=== PATIENT | female | born 1940 | race Caucasian/White ===

== ENCOUNTER 2017-12-09 16:48 | Inpatient (IN) | payer MEDICARE, BC ==
[2017-12-09 17:06] VITALS: BMI 23.8
[2017-12-09] MEDS ORDERED: Calcium Carbonate 500 MG ChewTAB PO PRN (18:39)
[2017-12-09] MEDS ORDERED: Bisacodyl 5 MG TAB PO PRN (18:39)
[2017-12-09] MEDS ORDERED: Benzonatate 100 MG CAP PO PRN (18:39)
[2017-12-09] MEDS: Baclofen 10 MG TAB PO SCH (20:13)
[2017-12-09] MEDS: Cefdinir 300 MG CAP PO SCH (20:13)
[2017-12-09] MEDS: Metoprolol Tartrate 25 MG TAB PO SCH (20:13)
[2017-12-09 21:56] LABS: Bilirubin Negative (Negative); Blood, Urine Negative (Negative); Glucose, Urine (Dipstick) Negative (Negative); Leukocyte Negative (Negative); Nitrite Negative (Negative); Protein, Urine (Dipstick) 30 mg/dL (Neg-Trace); Urobilinogen 0.2 mg/dL (0.2-1.0); pH, Urine 8.5 (5.0-9.0)
[2017-12-09 22:14] LABS: Clarity SL HAZY (Clear)
[2017-12-09 22:15] LABS: Bacteria/HPF 1+ HPF (None Seen); RBC/HPF 0-3 HPF (0-3); WBC/HPF 0-3 HPF (0-3)
--- NOTE | 2017-12-09 22:44 | HP ---
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 She normally lives alone, takes care of herself on her medications of baclofen 10 mg 3 times daily, citalopram 20 daily, gabapentin 300 mg nightly, isos orbide 30 mg daily, hydrochlorothiazide 25 daily, metoprolol 12.5 twice daily, pravastatin 20 daily. There at the hospital, she was found to have guaiac-positive stools and to have a CT scan showing di ffuse colitis of the descending colon. She was initially treated with IV fluids and broad spectrum a ntibiotics for diverticulitis with Flagyl and vancomycin. C. diff returned negative. She was also s tarted on Rocephin for possible pneumonia. She improved with the fluid, but continued to have diarrh ea when restarted back on her feeding. Subsequent CT scan still showed no change in the colitis and subsequently she had a non-prepped colonoscopy and biopsy done, which showed only ischemic colitis. A CT angiogram did not show any large vessel disease and it is felt that she should only be treated s ymptomatically for the colitis if she was not a surgical candidate and anticoagulation was contraindi cated due to the bleed. She has improved, is eating better now, but is on a full liquid diet with oc casional mechanical soft food. PAST MEDICAL HISTORY: Remarkable for the above-mentioned CVA several years ago, but she was independ ent, living at home with a caregiver, this was in 2008. She has a history of longstanding hypertensi on, well controlled, and a history of depression and distant colon polyp and a previous history of is chemic colitis in 03/2015. PAST SURGICAL HISTORY: Positive for cholecystectomy, hysterectomy. REVIEW OF SYSTEMS: HEENT: She denies any headaches, dizziness, change in vision or hearing, hoarsen ess or dysphagia. Pulmonary: She denies cough, sputum production. She has had some scarring on her x-ray, but was treated for pneumonia with no real evidence. Gastrointestinal: She has had no nause a or vomiting. Had some abdominal pain, now resolved, but was minimal. Genitourinary: Denies dysur ia, hematuria, nocturia. Musculoskeletal: Has some stiffness in both arms, particularly on the righ t. Neurologic: Complains of expressive aphasia and right-sided weakness. SOCIAL HISTORY: She is a , lives alone. Smoked 35 years until 2004. Nondrinker. FAMILY MEDICAL HISTORY: Positive for cancer in her mother. ALLERGIES: She has no known allergies. PHYSICAL EXAMINATION: GENERAL: The patient is an elderly white female, in no acute distress, lying in bed, oriented x3, an d cooperative. VITAL SIGNS: Temperature 98, pulse 77, respirations 23, O2 sats 96%, blood pressure 136/65. HEENT: Pupils are equal, round, and react to light and accommodation. Sclerae are anicteric. Conju nctivae pale. Oral mucous membranes well hydrated. NECK: Supple. There are no nodes or masses. JVP is not elevated. LUNGS: Clear. CARDIAC: Showed regular rhythm. No gallops or murmurs. ABDOMEN: Soft, nontender with no masses or organomegaly. SKIN AND EXTREMITIES: Display no edema, clubbing, or cyanosis. NEUROLOGIC: Shows right hemiparesis and expressive aphasia, but no receptive aphasia. LABORATORY DATA: Most recent laboratory shows white count still elevated at 13,000, hematocrit 26, h emoglobin 8.6. ASSESSMENT: This is a 77-year-old white female with a history of recurrent ischemic colitis and has had persistent colitis in the last 2 weeks, but now appears to be improving on slow advancement of di et. She has also been treated for possible pneumonia or diverticulitis with cefdinir and is continui ng on this as her white count is still slightly elevated at 13,000. She did have acute renal failure with creatinine of 2.33 on admission, but this has normalized with IV fluids. PLAN: 1. Slowly advance diet with clear liquid and occasional mechanical soft. 2. Continue cefdinir. 3. Continue baclofen. 4. Monitor blood pressures. The patient was on metoprolol and Imdur prior to admission, but now is off both of these medicines. 5. Start PT, OT.
[2017-12-10 05:46] LABS: ALT (SGPT) 9 U/L (8-55); AST (SGOT) 9 U/L (5-34); Albumin 2.4 g/dL (3.4-4.8); Alkaline Phosphatase 43 U/L (40-150); Anion Gap 10 mmol/L (10-20); BUN (Urea Nitrogen) 6 mg/dL (9.8-20.1); Bilirubin, Total 0.4 mg/dL (0.2-1.2); Calc. Creatinine Clearance 81 mL/min (70-130); Carbon Dioxide 23 mmol/L (23-31); Chloride 104 mmol/L (98-107); Estimated GFR-MDRD Greater than 90; Globulin 2.6 g/dL (2.4-3.5); Glucose 91 mg/dL (83-110); Potassium 3.7 mmol/L (3.5-5.1); Sodium 133 mmol/L (136-145)
[2017-12-10] MEDS ORDERED: Prevnar 13-Val Conj/PF 0.5 ML SYRINGE IM ONE (09:00)
[2017-12-10] MEDS ORDERED: Losartan Potassium 50 MG TAB PO SCH (09:00)
--- NOTE | 2017-12-10 09:30 | PRG ---
DATE OF SERVICE: 12/10/2017 SUBJECTIVE: The patient is a 77-year-old white female with a history of distant CVA who was recently admitted to the [facility] for persistent diarrhea, guaiac positive, hypotension, dehydration. She was found to have ischemic colitis and has been treated with IV fluids, antibiotics, and slow pr ogression of her diet with persistent colitis, but appears to be improving. She has become significa ntly weak and therefore admitted to [facility] unit for therapy while monitoring her lilly rrhea and dehydration while she is slowly advanced on her diet. The patient states that she slept we ll through the night, last night. She had only one episode of diarrhea. She has not been eating wel l, however, but denies any abdominal pain. OBJECTIVE: VITAL SIGNS: Temperature last night with T-max of 100, but now 96.6, pulse 70, respirations 20, O2 s ats 95%, blood pressure was increased last night to 242/103, but she had not been restarted back on h er metoprolol and losartan. This was done with resolution of her blood pressure elevation and now it is 132/64. LUNGS: Clear. CARDIAC EXAMINATION: Shows regular rhythm. ABDOMEN: Soft, nontender. NEUROLOGICAL: Shows her to have right hemiparesis, expressive, but not receptive aphasia. LABORATORY DATA: Electrolytes showed sodium 133, potassium 3.7, chloride 104, bicarbonate 23, BUN 6, creatinine 0.59. AST 9, ALT 9. Albumin 2.4, globulin 2.6. ASSESSMENT: 1. Ischemic colitis with acute renal failure, now resolved, but with persistent mild diarrhea slowly advancing with clear liquid and occasional mechanical soft diet. 2. Recurrence of hypertension, controlled on metoprolol, losartan. We will monitor closely. 3. Severe deconditioning. We will start PT and OT on Tuesday.
[2017-12-10] MEDS: Baclofen 10 MG TAB PO SCH ×3 (10:13→20:30)
[2017-12-10] MEDS: Cefdinir 300 MG CAP PO SCH ×2 (10:13→20:29)
[2017-12-10] MEDS: Hydrochlorothiazide 25 MG TAB PO SCH (10:13)
[2017-12-10] MEDS: Citalopram 20 MG TAB PO SCH (10:14)
[2017-12-10] MEDS: Metoprolol Tartrate 25 MG TAB PO SCH ×2 (10:14→20:30)
[2017-12-10] MEDS: Losartan 25 MG TAB PO SCH (10:16)
[2017-12-11] MEDS: Cefdinir 300 MG CAP PO SCH ×2 (09:46→21:07)
[2017-12-11] MEDS: Citalopram 20 MG TAB PO SCH (09:46)
[2017-12-11] MEDS: Baclofen 10 MG TAB PO SCH ×3 (09:46→21:07)
[2017-12-11] MEDS: Metoprolol Tartrate 25 MG TAB PO SCH ×2 (09:47→21:07)
[2017-12-11] MEDS: Hydrochlorothiazide 25 MG TAB PO SCH (09:47)
[2017-12-11] MEDS: Losartan 25 MG TAB PO SCH (09:47)
[2017-12-11] MEDS ORDERED: Nystatin Cream 30 GM TUBE TOP SCH (21:00)
--- NOTE | 2017-12-11 21:37 | PRG ---
DATE OF SERVICE: 12/11/2017 SUBJECTIVE: The patient states that she is still having diarrhea, but is eating well, not feeling we ak or dehydrated. He is having no abdominal pain or fever. Objective shows the patient has had thre e bowel movements and diapers today, but has eaten well with 3400 in and the patient eating 50%-100% of meals. OBJECTIVE: VITAL SIGNS: Have been stable with temperature 99.5, pulse 77, respirations 20, O2 saturations 95% o n room air, blood pressure 143/79. ABDOMEN: Soft and nontender. LUNGS: Clear. ASSESSMENT: 1. Persistent ischemic colitis and diarrhea, but with no significant dehydration and continued oral intake. 2. Resolved acute renal failure, but with persistent diarrhea, we will check again tomorrow. 3. Hypertension, controlled on metoprolol and losartan. 4. Severe deconditioning, to start PT and OT tomorrow.
[2017-12-12] MEDS: Cefdinir 300 MG CAP PO SCH ×2 (09:13→20:34)
[2017-12-12] MEDS: Losartan 25 MG TAB PO SCH (09:14)
[2017-12-12] MEDS: Baclofen 10 MG TAB PO SCH ×3 (09:14→20:34)
[2017-12-12] MEDS: Metoprolol Tartrate 25 MG TAB PO SCH ×2 (09:14→20:35)
[2017-12-12] MEDS: Hydrochlorothiazide 25 MG TAB PO SCH (09:15)
[2017-12-12] MEDS: Citalopram 20 MG TAB PO SCH (09:15)
[2017-12-12 09:22] LABS: Anion Gap 16 mmol/L (10-20); BUN (Urea Nitrogen) 5 mg/dL (9.8-20.1); Calc. Creatinine Clearance 72 mL/min (70-130); Carbon Dioxide 15 mmol/L (23-31); Chloride 108 mmol/L (98-107); Estimated GFR-MDRD 87; Glucose 142 mg/dL (83-110); Potassium 4.8 mmol/L (3.5-5.1); Sodium 134 mmol/L (136-145)
[2017-12-12 11:23] LABS: #Basophils 0.2 thou/uL (0.0-0.2); #Eosinphils 0.1 thou/uL (0.0-0.7); #Lymphocytes 0.7 thou/uL (1.20-3.40); #Monocytes 1.1 thou/uL (0.11-0.59); #Neutrophils 5.5 thou/uL (1.40-6.50); %Basophils 2.2 % (0.0-1.0); %Eosinophils 1.9 % (0.0-10.0); %Lymphocytes 9.4 % (21.0-51.0); %Monocytes 14.2 % (0.0-10.0); %Neutrophils 72.3 % (42.0-75.0); Hemoglobin 8.7 g/dL (12.0-16.0); Mean Corpuscular HGB CONC 31.6 g/dL (32.0-36.0); Mean Corpuscular Hemoglobin 26.7 pg (27.0-31.0); Mean Corpuscular Volume 84.3 fl (81.0-99.0); Mean Platelet Volume 5.5 fL (7.4-10.4); Platelet Count 569 thou/uL (130-400); RBC Distribution Width 16.4 % (11.5-14.5); Red Blood Cell (RBC) Count 3.24 mill/uL (4.20-5.40); White Blood Cell (WBC) Count 7.6 thou/uL (4.8-10.8)
--- NOTE | 2017-12-13 08:02 | PRG ---
DATE OF SERVICE: 12/12/2017 SUBJECTIVE: The patient lying in bed, states she feels weak and is refusing labs, does not want to e at or get up. States she is ready to give up. She is not having any pain. She is having persistent diarrhea. OBJECTIVE: VITAL SIGNS: Temperature is 98.6, pulse 73, respirations 20, O2 sats 94%, blood pressure 157/72. LUNGS: Lungs are clear. CARDIAC: Cardiac examination showed regular rhythm. ABDOMEN: Abdomen is soft and nontender. SKIN AND EXTREMITIES: Show no edema or clubbing. Normal skin turgor. ASSESSMENT: 1. Persistent ischemic colitis, persistent diarrhea. 2. Resolved acute renal failure, but refusal of labs to check and will discuss with family. 3. Stable hypertension on losartan and metoprolol. 4. Severe deconditioning with refusal of therapy at this time. PLAN: Discussed with family. Continue clear liquid diet. Stress need to monitor renal function.
--- NOTE | 2017-12-13 08:05 | PRG ---
DATE OF SERVICE: 12/13/2017 SUBJECTIVE: The patient is lying in the bed resting, much more cheerful today, alert and has allowed lab work and has cooperated with therapy and states she feels that she is getting better. She is still having 1-3 loose stools, but is eating 100% of her clear liquid diet with no abdominal p ain. She has been walking with therapy up to 70 feet with her cindy-walker. Denied any nausea, vomit ing, fever or chills or abdominal pain. OBJECTIVE: VITAL SIGNS: Temperature is 99.8, pulse 73, respirations 20, O2 sats 95% on room air, blood pressure 122/59. LABORATORY: Laboratory did show stable white count 7600, hematocrit 27, hemoglobin 8.7, stable. BUN is stable at 5, creatinine 0.66, GFR 87. Sodium 134, potassium 4.8, chloride 108, bicarb 15. Inta ke and output showed that she did have 2280 in, 1-3 loose stools. ABDOMEN: Abdomen is soft and nontender. LUNGS: Lungs are clear. CARDIAC: Cardiac examination shows regular rhythm. ASSESSMENT: 1. Improving deconditioning and cooperating with therapy. 2. Persistent, but decreased diarrhea with good oral intake. 3. Resolved acute renal failure, but with mild increased metabolic acidosis. 4. Stable cerebrovascular accident with right hemiparesis. PLAN: Advance diet to full liquid. Continue PT, OT. Continue to monitor vital signs closely. Cont inue to monitor for metabolic acidosis and start on sodium bicarbonate 325 mg twice daily.
[2017-12-13] MEDS: Sodium Bicarbonate Tab 325 MG TAB PO SCH ×2 (09:27→20:18)
[2017-12-13] MEDS: Cefdinir 300 MG CAP PO SCH ×2 (09:27→20:17)
[2017-12-13] MEDS: Hydrochlorothiazide 25 MG TAB PO SCH (09:28)
[2017-12-13] MEDS: Metoprolol Tartrate 25 MG TAB PO SCH ×2 (09:29→20:17)
[2017-12-13] MEDS: Losartan 25 MG TAB PO SCH (09:29)
[2017-12-13] MEDS: Baclofen 10 MG TAB PO SCH ×3 (09:29→20:17)
[2017-12-13] MEDS: Citalopram 20 MG TAB PO SCH (09:29)
[2017-12-14] MEDS: Citalopram 20 MG TAB PO SCH (08:04)
[2017-12-14] MEDS: Baclofen 10 MG TAB PO SCH ×3 (08:04→20:52)
[2017-12-14] MEDS: Cefdinir 300 MG CAP PO SCH ×2 (08:04→20:52)
[2017-12-14] MEDS: Hydrochlorothiazide 25 MG TAB PO SCH (08:04)
[2017-12-14] MEDS: Losartan 25 MG TAB PO SCH (08:05)
[2017-12-14] MEDS: Sodium Bicarbonate Tab 325 MG TAB PO SCH ×2 (08:05→20:54)
[2017-12-14] MEDS: Metoprolol Tartrate 25 MG TAB PO SCH ×2 (08:05→20:54)
--- NOTE | 2017-12-14 21:34 | PRG ---
DATE OF SERVICE: 12/14/2017 SUBJECTIVE: Patient feels much better, stronger, more alert and cheerful. States she feels she is g etting better, still having some diarrhea, but feels that she is tolerating a diet full liquid and wi shes to stay on this. OBJECTIVE: Shows blood pressure is 164/70, respirations 21, pulse 73, afebrile, O2 sats 96%. LABORATORY DATA: Laboratories were not done. Patient did work with therapy today. [place] teeth, was h face, sat in the shower bench, required assistance to take a shower, and assistance with changing h er diaper became very fatigued, but did cooperate physical therapy. She has standby assistance to arsen singh, walk 36 and 30 feet, appeared to be improving, but needed assistance, but stated that she did not walk on her own at home. ASSESSMENT: 1. Ischemic colitis with persistent but stabilizing diarrhea. 2. Resolving dehydration with increased oral intake. 3. Improving deconditioning. 4. Stable cerebrovascular accident with right hemiparesis. 5. Resolved acute renal failure. PLAN: 1. Continue PT, OT. 2. Continue full-liquid diet. 3. Continue to monitor vital signs closely. 4. Repeat labs in 2 days.
[2017-12-15] MEDS: Citalopram 20 MG TAB PO SCH (08:28)
[2017-12-15] MEDS: Baclofen 10 MG TAB PO SCH ×3 (08:28→21:06)
[2017-12-15] MEDS: Cefdinir 300 MG CAP PO SCH ×2 (08:28→21:06)
[2017-12-15] MEDS: Metoprolol Tartrate 25 MG TAB PO SCH ×2 (08:29→21:06)
[2017-12-15] MEDS: Losartan 25 MG TAB PO SCH (08:29)
[2017-12-15] MEDS: Sodium Bicarbonate Tab 325 MG TAB PO SCH ×2 (08:29→21:06)
[2017-12-15] MEDS: Hydrochlorothiazide 25 MG TAB PO SCH (08:29)
[2017-12-16 06:05] LABS: Anion Gap 9 mmol/L (10-20); BUN (Urea Nitrogen) 7 mg/dL (9.8-20.1); Calc. Creatinine Clearance 77 mL/min (70-130); Calcium 9.6 mg/dL (7.8-10.44); Carbon Dioxide 27 mmol/L (23-31); Chloride 105 mmol/L (98-107); Estimated GFR-MDRD Greater than 90; Glucose 89 mg/dL (83-110); Potassium 3.8 mmol/L (3.5-5.1); Sodium 137 mmol/L (136-145)
[2017-12-16 06:24] LABS: Anisocytosis SLIGHT = 6-15 cells (100X) (0-5/hpf); Band 20 % (5-11); Hemoglobin 8.3 g/dL (12.0-16.0); Hypochromia MODERATE=16-30 cells (100X) (0-5/hpf); Lymphocytes 25 % (21-51); MDiff Complete? YES; Mean Corpuscular HGB CONC 30.8 g/dL (32.0-36.0); Mean Corpuscular Hemoglobin 26.5 pg (27.0-31.0); Mean Corpuscular Volume 86.1 fl (81.0-99.0); Mean Platelet Volume 5.2 fL (7.4-10.4); Metamyelocyte 2 % (0-0); Monocytes 10 % (0-10); Neutrophil 43 % (42-75); PLT Morphology Comment Appears Increased; Platelet Count 589 thou/uL (130-400); RBC Distribution Width 17.3 % (11.5-14.5); Red Blood Cell (RBC) Count 3.14 mill/uL (4.20-5.40); Target Cells SLIGHT = 2-5 cells (100X) (0-1/hpf); White Blood Cell (WBC) Count 6.8 thou/uL (4.8-10.8)
[2017-12-16] MEDS: Citalopram 20 MG TAB PO SCH (08:53)
[2017-12-16] MEDS: Hydrochlorothiazide 25 MG TAB PO SCH (08:53)
[2017-12-16] MEDS: Losartan 25 MG TAB PO SCH (08:54)
[2017-12-16] MEDS: Baclofen 10 MG TAB PO SCH ×3 (08:54→21:53)
[2017-12-16] MEDS: Metoprolol Tartrate 25 MG TAB PO SCH ×2 (08:54→21:53)
[2017-12-16] MEDS: Sodium Bicarbonate Tab 325 MG TAB PO SCH (08:54)
--- NOTE | 2017-12-16 09:33 | PRG ---
DATE OF SERVICE: 12/15/2017 SUBJECTIVE: The patient is a very pleasant 77-year-old white female with a history of previous CVA, who has developed ischemic colitis and recurrent diarrhea with subsequent acute chronic renal failure . Her renal failure has resolved and she is getting stronger, but she is still very weak, still havi ng diarrhea from her ischemic colitis. She has been advanced to mechanical soft diet and is tolerati ng, but is still having 1-2 soft formed stools daily. She is having no abdominal pain or nausea. OBJECTIVE: ABDOMEN: Abdomen is soft and nontender. LUNGS: Lungs are clear. PT, OT states that she is cooperating well with therapy and in fact was able to dress with only conta ct assistance and was able to walk 92 feet with a cindy-walker with only standby assistance. VITAL SIGNS: Vital signs showed her blood pressure was stable at 191/81 this morning, but O2 sat was 95, respirations 19, pulse 68, temperature 98 and repeat blood pressure is 153/70. LABORATORY: Laboratory showed no recent labs and will repeat again tomorrow. ASSESSMENT: 1. Persistent occult ischemic colitis, tolerating mechanical soft diet with persistent diarrhea, but will check for dehydration and prerenal azotemia tomorrow. 2. Previous cerebrovascular accident with right hemiparesis, stable, but with increasing strength an d conditioning and beginning to be able to maintain her ADLs. PLAN: CBC, base met profile in the a.m. Continue mechanical soft diet. Continue PT, OT.
--- NOTE | 2017-12-16 11:37 | PRG ---
DATE OF SERVICE: 12/16/2017 SUBJECTIVE: The patient feels well with increased strength. No nausea and vomiting, but is having m ore diarrhea since advanced to mechanical soft diet and wished to go back to full liquid. OBJECTIVE: VITAL SIGNS: Shows blood pressure 150/70, temperature 98, pulse 69, respirations 18, O2 sats 96% on room air. LUNGS: Clear. CARDIAC: Examination shows regular rhythm. ABDOMEN: Soft and nontender. NEUROLOGIC: Shows stable right hemiparesis. LABORATORY DATA: Today shows white count of 6,800, hematocrit 27, hemoglobin 8.3. Sodium is 137, po tassium 3.8, chloride 105, bicarbonate 27, BUN 7, creatinine 0.62, glucose 89, and calcium 9.6. Inta ke and output showed that she has had persistent loose stools yesterday with no recent change. ASSESSMENT: 1. Persistent ischemic colitis, possibly slightly worsened with advanced diet. 2. Stable right hemiparesis, old CVA, but improving deconditioning and cooperating with therapy. 3. Acute renal failure, resolved, secondary to dehydration and rhabdomyolysis. PLAN: 1. Discontinue antibiotics. There is no evidence of infection. 2. Obtain stool for Clostridium difficile. 3. Repeat CBC and basic metabolic profile in 2 days. 4. Continue mechanical soft diet, but may decrease to full liquid this week at family's request. 5. Continue PT and OT.
[2017-12-16] MEDS: Cholestyramine/Aspartame 4 gm Packet PO SCH (21:53)
[2017-12-17] MEDS: Hydrochlorothiazide 25 MG TAB PO SCH (08:42)
[2017-12-17] MEDS: Baclofen 10 MG TAB PO SCH ×3 (08:43→21:05)
[2017-12-17] MEDS: Losartan 25 MG TAB PO SCH (08:43)
[2017-12-17] MEDS: Metoprolol Tartrate 25 MG TAB PO SCH ×2 (08:43→21:05)
[2017-12-17] MEDS: Citalopram 20 MG TAB PO SCH (08:43)
[2017-12-17] MEDS: Cholestyramine/Aspartame 4 gm Packet PO SCH ×2 (10:27→21:05)
--- NOTE | 2017-12-17 11:33 | PRG ---
DATE OF SERVICE: 12/17/2017 SUBJECTIVE: Ms. Masterson is doing well. Denies any complaints. She states that she has not had any f urther diarrhea. She is tolerating her p.o. intake. No family at bedside. OBJECTIVE: VITAL SIGNS: She is afebrile, heart rate 61, respirations are 18, oxygen saturation 97%, blood press ure 124/60. CARDIOVASCULAR SYSTEM: S1 and S2 plus. RESPIRATORY SYSTEM: Normal vesicular breath sounds. ABDOMEN: Soft, nontender, bowel sounds heard in all quadrants. EXTREMITIES: Without cyanosis or clubbing. Peripheral pulses are palpable. CENTRAL NERVOUS SYSTEM: Generalized weakness. IMPRESSION: 1. Ischemic colitis, improving clinically. 2. Right-sided weakness due to old cerebrovascular accident. 3. Resolved acute renal failure. 4. Deconditioning. 5. Depression. PLAN: 1. Continue to advance diet as tolerated. Monitor for any worsening abdominal pain or diarrhea. 2. Continue current medications. 3. DVT and stress ulcer prophylaxis. 4. Decubitus precautions. 5. Routine laboratory values. 6. Reviewed her I's and O's and she had 2 bowel movements in her diapers yesterday and 6 urine. 7. Discussed with nursing. No family at bedside.
[2017-12-18] MEDS: Ondansetron ODT 4 MG TAB PO PRN (08:27)
[2017-12-18] MEDS: Baclofen 10 MG TAB PO SCH ×3 (09:13→21:09)
[2017-12-18] MEDS: Acetaminophen 500 MG TAB PO PRN (09:13)
[2017-12-18] MEDS: Hydrochlorothiazide 25 MG TAB PO SCH (09:14)
[2017-12-18] MEDS: Citalopram 20 MG TAB PO SCH (09:14)
[2017-12-18] MEDS: Metoprolol Tartrate 25 MG TAB PO SCH ×2 (09:14→21:09)
[2017-12-18] MEDS: Losartan 25 MG TAB PO SCH (09:14)
[2017-12-18] MEDS: Cholestyramine/Aspartame 4 gm Packet PO SCH ×2 (09:15→21:09)
--- NOTE | 2017-12-18 11:59 | PRG ---
DATE OF SERVICE: 12/18/2017 SUBJECTIVE: Ms. Masterson had an episode of nausea and abdominal pain with breakfast that resolved with Tylenol and Zofran. She did not have any issues yesterday. She is on a regular diet and since this is just happening one time, I told the nurses to continue the regular diet for lunch and if she has pain again, then we will get her back on a full liquid diet. OBJECTIVE: VITAL SIGNS: Low-grade temperature of 99.2, heart rate is 69, respirations 19, oxygen saturation 96% on room air, blood pressure 125/66. CARDIOVASCULAR: S1, S2 plus. RESPIRATORY SYSTEM: Normal vesicular breath sounds. ABDOMEN: Soft, nontender, bowel sounds heard in all quadrants. EXTREMITIES: Without cyanosis or clubbing. CENTRAL NERVOUS SYSTEM: Generalized weakness. IMPRESSION: 1. Ischemic colitis. 2. Right-sided weakness due to old cerebrovascular accident. 3. Resolving acute renal failure. 4. Deconditioning. 5. Depression. PLAN: 1. Continue regular diet, but if she has any pain with the lunch, then we will get her back on a ful l liquid diet. 2. Continue current medications. 3. Physical therapy. 4. DVT and stress ulcer prophylaxis. 5. Decubitus precautions. 6. Recheck laboratory values in the morning. 7. Dr. Jose L al tonight.
[2017-12-19 06:10] LABS: ALT (SGPT) 7 U/L (8-55); AST (SGOT) 10 U/L (5-34); Albumin 2.7 g/dL (3.4-4.8); Alkaline Phosphatase 54 U/L (40-150); Anion Gap 11 mmol/L (10-20); BUN (Urea Nitrogen) 12 mg/dL (9.8-20.1); Bilirubin, Total 0.2 mg/dL (0.2-1.2); Calc. Creatinine Clearance 73 mL/min (70-130); Calcium 9.8 mg/dL (7.8-10.44); Carbon Dioxide 24 mmol/L (23-31); Chloride 103 mmol/L (98-107); Estimated GFR-MDRD 89; Globulin 3.2 g/dL (2.4-3.5); Glucose 86 mg/dL (83-110); Protein, Total 5.9 g/dL (6.0-8.3); Sodium 134 mmol/L (136-145)
[2017-12-19 06:38] LABS: Anisocytosis SLIGHT = 6-15 cells (100X) (0-5/hpf); Band 35 % (5-11); Eosinophils 1 % (0-10); Hemoglobin 9.4 g/dL (12.0-16.0); Hypochromia MODERATE=16-30 cells (100X) (0-5/hpf); Lymphocytes 13 % (21-51); MDiff Complete? YES; Mean Corpuscular HGB CONC 30.4 g/dL (32.0-36.0); Mean Corpuscular Hemoglobin 26.2 pg (27.0-31.0); Mean Corpuscular Volume 86.4 fl (81.0-99.0); Mean Platelet Volume 5.4 fL (7.4-10.4); Metamyelocyte 4 % (0-0); Monocytes 10 % (0-10); Neutrophil 37 % (42-75); PLT Morphology Comment Appears Increased; Platelet Count 524 thou/uL (130-400); RBC Distribution Width 16.8 % (11.5-14.5); Target Cells SLIGHT = 2-5 cells (100X) (0-1/hpf); White Blood Cell (WBC) Count 7.6 thou/uL (4.8-10.8)
[2017-12-19] MEDS: Citalopram 20 MG TAB PO SCH (08:41)
[2017-12-19] MEDS: Baclofen 10 MG TAB PO SCH ×2 (08:41→15:11)
[2017-12-19] MEDS: Losartan 25 MG TAB PO SCH (08:42)
[2017-12-19] MEDS: Hydrochlorothiazide 25 MG TAB PO SCH (08:42)
[2017-12-19] MEDS: Metoprolol Tartrate 25 MG TAB PO SCH ×2 (08:43→20:58)
[2017-12-19] MEDS: Cholestyramine/Aspartame 4 gm Packet PO SCH ×2 (10:22→21:02)
--- NOTE | 2017-12-20 07:50 | PRG ---
DATE OF SERVICE: 12/19/2017 SUBJECTIVE: The patient lying in bed, feels well. Visited with family today and states that she is feeling better and is wanting to go home and discuss with family who agreed that she was totally inde pendent at home with mild occasional assistance and that is their goal. She is eating better. State s she is having less diarrhea, feels she is getting stronger. OBJECTIVE: VITAL SIGNS: Blood pressure is 115/53, temperature is 98, pulse 76, respirations 25, O2 sats 93% on room air. LUNGS: Lungs are clear. CARDIAC: Cardiac examination shows regular rhythm. No gallops or murmurs. ABDOMEN: Soft and nontender. SKIN AND EXTREMITIES: Skin and extremities showed no edema, clubbing, cyanosis. NEUROLOGICAL: Does show right hemiparesis. ASSESSMENT: 1. Ischemic colitis, improving with decreasing diarrhea on mechanical soft diet. 2. Right hemiparesis secondary to old cerebrovascular accidents, stable. 3. Deconditioning, improving daily. 4. Depression, stable, improved. PLAN: 1. Continue mechanical soft regular diet. The patient feels she is getting stronger and is having o nly 1-2 bowel movements per day. 2. Discontinue baclofen. The patient has been taking on admission here for muscle spasms at patient 's and family's request. 3. Continue to monitor for increased diarrhea.
[2017-12-20] MEDS: Hydrochlorothiazide 25 MG TAB PO SCH (08:51)
[2017-12-20] MEDS: Citalopram 20 MG TAB PO SCH (08:51)
[2017-12-20] MEDS: Metoprolol Tartrate 25 MG TAB PO SCH ×2 (08:52→21:08)
[2017-12-20] MEDS: Losartan 25 MG TAB PO SCH (08:52)
[2017-12-20] MEDS: Cholestyramine/Aspartame 4 gm Packet PO SCH ×2 (09:46→21:07)
--- NOTE | 2017-12-20 10:17 | PRG ---
DATE OF SERVICE: 12/20/2017 SUBJECTIVE: The patient is sleeping, but awakens easily, cheerful, in no distress. Apparently did n ot sleep well last night for the first time, but states that she is ready to do more therapy today an d states that she ate well yesterday and is satisfied with her two soft stools today with no abdomina l pain. OBJECTIVE: VITAL SIGNS: Blood pressure is 106/58, temperature is 96, pulse 62, respirations 20, O2 sats 95% on room air. LUNGS: Clear. ABDOMEN: Soft and nontender. SKIN AND EXTREMITIES: Display no edema, clubbing, cyanosis. LABORATORY DATA: Laboratory showed white count of 7600, hematocrit 31, hemoglobin 9. Sodium 134, po tassium 4.0, chloride 103, bicarbonate 24, BUN is 12, creatinine 0.65, ALT 7, albumin 2.7, increased from 2.4. ASSESSMENT: 1. Ischemic colitis appeared to be improving on cholestyramine with mechanical soft diet with increa sing albumin, nutrition, but still malnourished. 2. Severe deconditioning, but improving daily as patient is working with physical therapy and will d iscuss later today, but yesterday standby assistance for transfers. Walked 70 and 80 feet and was im proving towards her goals. 3. Depression, anxiety, appeared to be improving. 4. Stable right hemiparesis, old cerebrovascular accident. 5. Resolved acute renal failure. PLAN: Continue to have regular mechanical soft diet. Continue PT, OT. Continue to stress oral hydr ation and adequate nutrition. Discussed discharge planning with family.
[2017-12-21] MEDS: Ondansetron ODT 4 MG TAB PO PRN (08:27)
[2017-12-21] MEDS: Acetaminophen 500 MG TAB PO PRN (08:28)
[2017-12-21] MEDS: Cholestyramine/Aspartame 4 gm Packet PO SCH ×3 (10:00→21:38)
[2017-12-21] MEDS: Citalopram 20 MG TAB PO SCH (12:18)
[2017-12-21] MEDS: Losartan 25 MG TAB PO SCH (12:18)
[2017-12-21] MEDS: Hydrochlorothiazide 25 MG TAB PO SCH (12:18)
[2017-12-21] MEDS: Metoprolol Tartrate 25 MG TAB PO SCH ×2 (12:19→20:00)
--- NOTE | 2017-12-22 06:39 | PRG ---
DATE OF SERVICE: 12/21/2017 SUBJECTIVE: The patient feels well, sitting up in bed, stating she is tolerating her diet well and i s having tolerable soft stool several times daily. She feels she is getting stronger and has been up cooperating well with therapy. OBJECTIVE: VITAL SIGNS: Shows her blood pressure is 120/59, temperature is 98, pulse 71, respirations 18, O2 sa ts 96% on room air. LUNGS: Lungs are clear. CARDIAC: Cardiac examination shows regular rhythm. ABDOMEN: Abdomen is soft and nontender. SKIN AND EXTREMITIES: Skin and extremities show no edema, clubbing, cyanosis. The patient discussed at team conference and recommended family comforts as still need assistance wit h ADLs, although improving. ASSESSMENT: 1. Ischemic colitis with chronic diarrhea appears to be stabilizing on diet with only 1-2 loose stoo ls a day. 2. Deconditioning, improving daily, but still unable to maintain the ADLs in the opinion of physical therapy. 3. Old cerebrovascular accident with aphasia and right-sided weakness, stable. 4. Depression and anxiety was improved greatly. 5. Resolved acute renal failure. PLAN: Repeat lab in the a.m. Discuss discharge planning with PT and with family. Continue regular mechanical soft diet.
[2017-12-22] MEDS: Citalopram 20 MG TAB PO SCH (07:53)
[2017-12-22] MEDS: Metoprolol Tartrate 25 MG TAB PO SCH ×2 (07:53→20:10)
[2017-12-22] MEDS: Losartan 25 MG TAB PO SCH (07:53)
[2017-12-22] MEDS: Hydrochlorothiazide 25 MG TAB PO SCH (07:53)
--- NOTE | 2017-12-22 07:54 | PRG ---
DATE OF SERVICE: 12/22/2017 SUBJECTIVE: The patient feels much better, awake and alert, responsive even speaking so much better, stating that she has only had 1-2 bowel movements per day and family and the nurses are agreeing wit h this. She is eating well and is getting stronger. She is denying any chest pain or shortness of b reath or abdominal pain. OBJECTIVE: VITAL SIGNS: Shows her blood pressure is 120/59, temperature is 98, pulse 71, respirations 18, O2 sa ts 96%. LUNGS: Lungs are clear. CARDIAC: Cardiac examination shows regular rhythm. No gallops or murmurs. ABDOMEN: Soft, nontender. SKIN AND EXTREMITIES: Skin and extremities show no edema, clubbing, cyanosis. NEUROLOGICAL: Shows stable right hemiparesis. ASSESSMENT: 1. Ischemic colitis appears to be stable with 1-2 soft stools a day, but tolerable. 2. Deconditioning and malnutrition, improving, tolerating mechanical soft diet well. 3. Acute renal failure resolved and will check laboratories today to confirm. 4. Stable cerebrovascular right hemiplegia. Cooperating well with therapy. 5. Deconditioning, improving greatly, but still unable to maintain ADLs and will discuss with famil y and PT today as patient family comfort requested by PT.
[2017-12-22 10:05] LABS: #Basophils 0.2 thou/uL (0.0-0.2); #Eosinphils 0.1 thou/uL (0.0-0.7); #Lymphocytes 0.7 thou/uL (1.20-3.40); #Monocytes 1.1 thou/uL (0.11-0.59); #Neutrophils 5.9 thou/uL (1.40-6.50); %Basophils 2.4 % (0.0-1.0); %Eosinophils 1.4 % (0.0-10.0); %Lymphocytes 8.8 % (21.0-51.0); %Monocytes 13.6 % (0.0-10.0); %Neutrophils 73.7 % (42.0-75.0); Mean Corpuscular HGB CONC 31.7 g/dL (32.0-36.0); Mean Corpuscular Hemoglobin 26.8 pg (27.0-31.0); Mean Corpuscular Volume 84.3 fl (81.0-99.0); Mean Platelet Volume 5.4 fL (7.4-10.4); Platelet Count 482 thou/uL (130-400); Red Blood Cell (RBC) Count 3.73 mill/uL (4.20-5.40); White Blood Cell (WBC) Count 8.1 thou/uL (4.8-10.8)
[2017-12-22 10:13] LABS: ALT (SGPT) 10 U/L (8-55); AST (SGOT) 12 U/L (5-34); Albumin 2.9 g/dL (3.4-4.8); Alkaline Phosphatase 61 U/L (40-150); Anion Gap 11 mmol/L (10-20); BUN (Urea Nitrogen) 9 mg/dL (9.8-20.1); Bilirubin, Total 0.3 mg/dL (0.2-1.2); Calc. Creatinine Clearance 67 mL/min (70-130); Calcium 10.1 mg/dL (7.8-10.44); Carbon Dioxide 23 mmol/L (23-31); Chloride 103 mmol/L (98-107); Estimated GFR-MDRD 80; Globulin 3.4 g/dL (2.4-3.5); Glucose 124 mg/dL (83-110); Potassium 3.5 mmol/L (3.5-5.1); Protein, Total 6.3 g/dL (6.0-8.3); Sodium 133 mmol/L (136-145)
[2017-12-22] MEDS: Cholestyramine/Aspartame 4 gm Packet PO SCH ×2 (10:22→20:18)
--- NOTE | 2017-12-23 07:58 | PRG ---
DATE OF SERVICE: 12/23/2017 SUBJECTIVE: The patient lying in bed, feels well. States she had a much better day yesterday with n o further abdominal pains, increased appetite, stable soft stools, but cooperated well with therapy. PT and OT agreed with this as she did progress and the main concern with Occupational Therapy was he r safety awareness and cleanliness with Occupational Therapy, and this was discussed with the patient . OBJECTIVE: VITAL SIGNS: Temperature is 98.9, pulse 66, respirations 20, O2 sats 96%, blood pressure 136/65. LUNGS: Lungs are clear. CARDIAC: Cardiac examination shows regular rhythm. ABDOMEN: Abdomen is soft and nontender. SKIN AND EXTREMITIES: Skin and extremities show no edema, clubbing, cyanosis. NEUROLOGICAL: Shows stable right hemiparesis. ASSESSMENT: 1. Stable ischemic colitis with 1-2 soft stools a day, maintaining hydration as she is tolerating a mechanical soft diet. 2. Deconditioning, improving daily, working well with therapy with still some safety awareness and p lele with Occupational Therapy secondary to her chronic hemiparesis, being addressed. 3. Acute renal failure, resolved as creatinine is stable at 0.71 with a BUN of 9. Sodium slightly l ow at 133, potassium 3.5, chloride 103, bicarb 23. Liver function shows slowly improving albumin, i ncreasing nutrition up to 2.9, white count stable 8100, hematocrit stable at 31 and hemoglobin increa sed to 10.0. PLAN: Continue PT, OT. Discuss safety with family and arrange for assistance at home. Continue nut rition, monitoring diet. Plan for discharge possibly next week.
[2017-12-23] MEDS: Losartan 25 MG TAB PO SCH (08:36)
[2017-12-23] MEDS: Hydrochlorothiazide 25 MG TAB PO SCH (08:36)
[2017-12-23] MEDS: Metoprolol Tartrate 25 MG TAB PO SCH ×2 (08:37→20:29)
[2017-12-23] MEDS: Citalopram 20 MG TAB PO SCH (08:37)
[2017-12-23] MEDS: Cholestyramine/Aspartame 4 gm Packet PO SCH ×2 (11:00→21:09)
[2017-12-24] MEDS: Citalopram 20 MG TAB PO SCH (09:13)
[2017-12-24] MEDS: Losartan 25 MG TAB PO SCH (09:14)
[2017-12-24] MEDS: Hydrochlorothiazide 25 MG TAB PO SCH (09:14)
[2017-12-24] MEDS: Metoprolol Tartrate 25 MG TAB PO SCH ×2 (09:14→20:43)
[2017-12-24] MEDS: Cholestyramine/Aspartame 4 gm Packet PO SCH ×2 (11:00→21:41)
--- NOTE | 2017-12-24 22:25 | PRG ---
DATE OF SERVICE: 12/24/2017 HISTORY OF PRESENT ILLNESS: Ms. 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 She also has some expressive aphasia and hypertension. S he had a GI bleed and acute renal failure and was admitted to [facility]. She eventual ly was stabilized and transferred to [facility] for physical therapy and occupational therapy to help control her diarrhea. Her diarrhea is secondary to diffuse colitis of the descending colon. Her C. diff was negative. Edna ntually, she was stabilized and transferred to [facility] for physical therapy and oc cupational therapy. SUBJECTIVE: The patient states she had a fairly good day today. It looks like she had two bowel mov ements today, one at 07:00 in the morning. OBJECTIVE: GENERAL: Reveals a well-developed, well-nourished, thin white female in no apparent distress at this time. HEENT: Reveals normocephalic, nontraumatic cranium. Pupils are equal, round, reactive. Extraocular movements intact. Nose and throat are dry, but clear. NECK: Supple, without mass, nodes or bruits. CHEST: Clear to auscultation. No rales or rhonchi, no wheezes are heard. CARDIOVASCULAR: Reveals a regular rate and rhythm without murmurs, gallops or rubs. ABDOMEN: Soft, nontender, active bowel sounds are noted. No rebound or guarding is noted. : Deferred. EXTREMITIES: Reveal no clubbing, cyanosis or edema. Patient has right hemiparesis from old CVA. ASSESSMENT: 1. Stable ischemic colitis, 1-2 stools a day. 2. Generalized weakness. The patient is tolerating mechanical soft diet. 3. Chronic hemiparesis with right-sided weakness, being addressed with PT and OT. 4. Acute renal insufficiency with a creatinine which is now stable. PLAN: 1. Continue physical therapy and occupational therapy. 2. Continue supportive care. 3. Stress ulcer prophylaxis. 4. Decubitus precautions. 5. Deep venous thrombosis prophylaxis. 6. Physical therapy and occupational therapy.
[2017-12-25] MEDS: Hydrochlorothiazide 25 MG TAB PO SCH (09:12)
[2017-12-25] MEDS: Losartan 25 MG TAB PO SCH (09:12)
[2017-12-25] MEDS: Metoprolol Tartrate 25 MG TAB PO SCH ×2 (09:12→20:55)
[2017-12-25] MEDS: Citalopram 20 MG TAB PO SCH (09:12)
[2017-12-25] MEDS: Cholestyramine/Aspartame 4 gm Packet PO SCH ×2 (10:42→20:58)
--- NOTE | 2017-12-25 21:05 | PRG ---
DATE OF SERVICE: 12/25/2017 HISTORY OF PRESENT ILLNESS: Ms. Masterson is a very pleasant 77-year-old white female, who unfortunatel y had a left middle cerebral artery infarct and right hemiparesis. She has expressive aphasia and hy pertension. She also had a GI bleed and acute renal failure and was admitted to [facility]. She eventually was stabilized and transferred to [facility], but had significant problems with continued diarrhea. She was transferred here and Dr. Domingo has been able to slow h er diarrhea down to 1-2 or possibly 3 diarrhea stools a day. Her diarrhea is secondary to a diffuse colitis of the descending colon. A C. diff has been negative in the past. SUBJECTIVE: The patient states she had fairly good day today. She had two bowel movements today. S he states that she will be going home sometimes this next week. PHYSICAL EXAMINATION: VITAL SIGNS: Reveal blood pressure this morning was 140/76, pulse 63-70, respirations 18-20, O2 sat 97% on room air, T-max 99.2. GENERAL: This is a well-developed, well-nourished, pleasant white female, in no apparent distress at this time. HEENT: Reveals normocephalic, nontraumatic cranium. Pupils are equal, round, and reactive. Extraoc ular movements are intact. Nose and throat are slightly dry, but clear. NECK: Supple without mass, nodes or bruits. CHEST: Clear to auscultation. No rales, no rhonchi, no wheezes are heard. No cough is noted. HEART: Reveals a regular rate and rhythm without murmurs, gallops or rubs. ABDOMEN: Soft and nontender without organomegaly. Normal bowel sounds are noted. No rebound or gua rding is noted. : Deferred. EXTREMITIES: Reveal no clubbing, cyanosis or edema. NEUROLOGIC: The patient does have right hemiparesis from her CVA. ASSESSMENT: 1. Ischemic colitis with 1-2 stools a day. 2. Generalized weakness. 3. Dysphagia with the patient tolerating mechanical soft diet. 4. Chronic hemiparesis with right-sided weakness, being addressed with PT and OT. 5. Acute renal insufficiency with creatinine which is now stable. PLAN: 1. Stress ulcer prophylaxis. 2. Decubitus precautions. 3. Deep venous thrombosis prophylaxis. 4. Continue supportive care. 5. Continue physical therapy and occupational therapy.
[2017-12-26] MEDS: Losartan 25 MG TAB PO SCH (08:45)
[2017-12-26] MEDS: Citalopram 20 MG TAB PO SCH (08:45)
[2017-12-26] MEDS: Metoprolol Tartrate 25 MG TAB PO SCH ×2 (08:45→20:23)
[2017-12-26] MEDS: Hydrochlorothiazide 25 MG TAB PO SCH (08:46)
[2017-12-26] MEDS: Cholestyramine/Aspartame 4 gm Packet PO SCH ×3 (10:00→21:33)
--- NOTE | 2017-12-26 11:18 | PRG ---
DATE OF SERVICE: 12/26/2017 SUBJECTIVE: The patient feels well, lying in bed, awakens, but is lying in the soiled diaper. She h as been having, however, only 1-2 stools daily and has been eating well with no weakness and increasi ng strength. PT states that she is progressing daily, but still recommend that she has 24-hour cathi tance at home for safety even though she has standby assistance for transfers and for ADLs. They are concerned about her cognition and safety. OBJECTIVE: VITAL SIGNS: Shows also her temperature is 98.8, pulse 73, respirations 22, O2 sats 97% on room air. LUNGS: Clear. CARDIAC EXAMINATION: Shows regular rhythm. No gallops or murmurs. ABDOMEN: Soft and nontender. SKIN AND EXTREMITIES: Show no edema, clubbing, cyanosis. NEUROLOGICAL: Shows right hemiparesis and expressive aphasia. ASSESSMENT: 1. Stable ischemic colitis with stable nutrition and only 1-2 bowel movements a day. 2. Stable cerebrovascular accident with right hemiplegia improving, but was still concerned about sa fety and hygiene with ADLs. 3. Recent urinary tract infection, resolved. 4. Acute renal sufficiency secondary to dehydration, resolved with good oral intake, but will repeat CBC and comp metabolic today. PLAN: 1. Discuss discharge planning with daughter today in her request 24-hour assistance. 2. Continue PT and OT. 3. Repeat CBC and comp metabolic today.
[2017-12-26 14:24] LABS: #Basophils 0.3 thou/uL (0.0-0.2); #Eosinphils 0.2 thou/uL (0.0-0.7); #Lymphocytes 1.6 thou/uL (1.20-3.40); #Monocytes 0.9 thou/uL (0.11-0.59); #Neutrophils 7.7 thou/uL (1.40-6.50); %Basophils 2.7 % (0.0-1.0); %Eosinophils 1.4 % (0.0-10.0); %Monocytes 8.3 % (0.0-10.0); %Neutrophils 72.6 % (42.0-75.0); Hemoglobin 10.1 g/dL (12.0-16.0); Mean Corpuscular HGB CONC 30.5 g/dL (32.0-36.0); Mean Corpuscular Hemoglobin 26.2 pg (27.0-31.0); Mean Platelet Volume 5.5 fL (7.4-10.4); Platelet Count 363 thou/uL (130-400); RBC Distribution Width 16.4 % (11.5-14.5); Red Blood Cell (RBC) Count 3.84 mill/uL (4.20-5.40); White Blood Cell (WBC) Count 10.7 thou/uL (4.8-10.8)
[2017-12-26 14:43] LABS: ALT (SGPT) 10 U/L (8-55); AST (SGOT) 15 U/L (5-34); Alkaline Phosphatase 78 U/L (40-150); Anion Gap 13 mmol/L (10-20); BUN (Urea Nitrogen) 14 mg/dL (9.8-20.1); Bilirubin, Total 0.2 mg/dL (0.2-1.2); Calc. Creatinine Clearance 61 mL/min (70-130); Calcium 10.2 mg/dL (7.8-10.44); Carbon Dioxide 25 mmol/L (23-31); Chloride 99 mmol/L (98-107); Estimated GFR-MDRD 72; Globulin 3.2 g/dL (2.4-3.5); Glucose 106 mg/dL (83-110); Potassium 4.8 mmol/L (3.5-5.1); Protein, Total 6.2 g/dL (6.0-8.3); Sodium 132 mmol/L (136-145)
--- NOTE | 2017-12-27 08:09 | PRG ---
DATE OF SERVICE: 12/27/2017 SUBJECTIVE: The patient feels well, sleeping well. Cooperated well with therapy and is still somewh at confused and required reorientation several times as far as ADLs, but is getting much stronger, st ill incontinent of urine, but was not incontinent of stool last night and is eating much better. OBJECTIVE: VITAL SIGNS: Shows her blood pressure is 110/55, temperature is 97, pulse 73, respirations 20, O2 sa ts 96% on room air. LABORATORY: Laboratory showed a white count 10,700, hematocrit 33, hemoglobin 10, sodium 132, potass ium 4.8, chloride 99, bicarbonate 25, BUN 14, creatinine 0.78, glucose 106, albumin up to 3.0 from ad mission of 2.4 two weeks ago. LUNGS: Lungs are clear. CARDIAC: Cardiac examination shows an irregularly irregular rhythm. ABDOMEN: Abdomen is soft and nontender. NEURO: Neurological shows stable right hemiparesis. Intake and output shows only 1 bowel movement yesterday. Multiple wet diapers. ASSESSMENT: 1. Ischemic colitis appears to be stabilizing with increasing nutrition decreasing diarrhea and decr easing abdominal pain and will continue on this diet and decrease cholestyramine at the patient's req uest. 2. Deconditioning, improving greatly with increased strength. 3. Cognitive deficits appears to be still persistent and will discuss with family safety awareness, living alone at home. 4. Hypertension, controlled to goal. 5. Acute on chronic renal failure, resolved. PLAN: Continue PT, OT. Discharge planning with family. Discontinue Questran and continue to monito r diarrhea.
[2017-12-27] MEDS: Losartan 25 MG TAB PO SCH (09:26)
[2017-12-27] MEDS: Metoprolol Tartrate 25 MG TAB PO SCH ×2 (09:26→20:11)
[2017-12-27] MEDS: Hydrochlorothiazide 25 MG TAB PO SCH (09:26)
[2017-12-27] MEDS: Citalopram 20 MG TAB PO SCH (09:26)
[2017-12-28] MEDS: Hydrochlorothiazide 25 MG TAB PO SCH (08:56)
[2017-12-28] MEDS: Citalopram 20 MG TAB PO SCH (08:56)
[2017-12-28] MEDS: Metoprolol Tartrate 25 MG TAB PO SCH ×2 (08:57→20:26)
[2017-12-28] MEDS: Losartan 25 MG TAB PO SCH (08:57)
[2017-12-28] MEDS: Acetaminophen 500 MG TAB PO PRN (09:37)
[2017-12-29] MEDS: Citalopram 20 MG TAB PO SCH (08:59)
[2017-12-29] MEDS: Metoprolol Tartrate 25 MG TAB PO SCH ×2 (08:59→20:29)
[2017-12-29] MEDS: Hydrochlorothiazide 25 MG TAB PO SCH (08:59)
[2017-12-29] MEDS: Losartan 25 MG TAB PO SCH (08:59)
[2017-12-29] MEDS: Acetaminophen 500 MG TAB PO PRN (13:24)
[2017-12-30 06:54] VITALS: BP 130/60; TEMP 97
--- NOTE | 2017-12-30 09:20 | PRG ---
DATE OF SERVICE: 12/28/2017 HISTORY OF PRESENT ILLNESS: The patient is feeling well, cooperating with therapy, having 1-2 loose stools daily, but is eating well and is not feeling weak or dehydrated and cooperating with therapy. OBJECTIVE: VITAL SIGNS: Shows her blood pressure is 102/63, temperature is 100.3, pulse 76, respirations 23, O2 sats 96%. LUNGS: Clear. CARDIAC: Examination showed regular rhythm. ABDOMEN: Soft, nontender. SKIN AND EXTREMITIES: Show no edema. LABORATORY DATA: Recent laboratory showed white count 10,700, hematocrit 33, hemoglobin 10, sodium 1 32, potassium 4.8, chloride 99, bicarbonate 25, BUN 14, creatinine 0.78. The patient is cooperating well with therapy and felt to be stable to be discharged home with 24-hour standby assistance. ASSESSMENT: 1. Resolving ischemic colitis with questionable low-grade fever this morning with no evidence of inf ection. We will continue to monitor. 2. Dehydration, resolved. This patient is eating well. 3. Deconditioning, improving greatly and able to maintain ADLs with standby assistance. 4. Stable cerebrovascular accident with right hemiparesis. PLAN: Continue PT, OT. Monitor vital signs. Discuss discharge planning with family.
--- NOTE | 2017-12-30 09:56 | PRG ---
DATE OF SERVICE: 12/29/2017 SUBJECTIVE: The patient feels well, cooperating with therapy. Eating well, no complaints. Still padilla ving 1-2 soft stools daily, but with no abdominal pain. OBJECTIVE: VITAL SIGNS: The patient has had no further fever since that one episode. Temperature today is 97.8 , pulse 71, respirations 20, O2 sats 98% on room air. LUNGS: Clear. CARDIAC: Examination showed regular rhythm. ABDOMEN: Soft and nontender. SKIN AND EXTREMITIES: Display no edema, clubbing, cyanosis. Family called and states they are ready to take the patient home tomorrow and that she will have a si tter with her at all times, either at her house or at sitter's house. ASSESSMENT: 1. Resolving ischemic colitis, persistent, but improved. 2. Resolved dehydration. 3. Improving deconditioning at baseline, requiring 24-hour supervision, but able do ADLs. 4. Stable cerebrovascular accident with right hemiplegia. PLAN: Discharge home tomorrow to family. Follow up with PCP to continue to monitor diarrhea, overal l intake.
[2017-12-30] MEDS: Metoprolol Tartrate 25 MG TAB PO SCH (10:23)
[2017-12-30] MEDS: Hydrochlorothiazide 25 MG TAB PO SCH (10:23)
[2017-12-30] MEDS: Losartan 25 MG TAB PO SCH (10:23)
[2017-12-30] MEDS: Citalopram 20 MG TAB PO SCH (10:24)
== END 2017-12-30 10:25 | disposition home health service (06) | DRG 394 ==
LOC: NAV ACUTE 16:48
PROVIDERS: ADMIT Internal Medicine; ATTEND Internal Medicine
DX: K55.9 Vascular disorder of intestine, unspecified (principal); I69.351 Hemiplegia and hemiparesis following cerebral infarction affecting right dominant side; N17.9 Acute kidney failure, unspecified; E46 Unspecified protein-calorie malnutrition; M62.82 Rhabdomyolysis; E87.2 Acidosis; I10 Essential (primary) hypertension; F32.9 Major depressive disorder, single episode, unspecified; I69.320 Aphasia following cerebral infarction; E86.0 Dehydration; R13.10 Dysphagia, unspecified; F41.9 Anxiety disorder, unspecified; M62.838 Other muscle spasm; Z68.23 Body mass index [BMI] 23.0-23.9, adult
CPT/HCPCS: 36415; 80048; 80053; 81001; 85025; 87324; 87449; G8978-GP-CL; G8979-GP-CJ; G8996-GN-CI; G8997-GN-CI; G9162-GN-CM; G9163-GN-CM; Q0162

== ENCOUNTER 2018-08-10 14:04 | Outpatient (CLI) | payer MEDICARE, BC ==
--- NOTE | 2018-08-10 14:36 | RAD ---
RIGHT WRIST RADIOGRAPHS THREE VIEWS: Date: 08-10-18 Provided Clinical History: Wrist pain status post injury. FINDINGS: Diffuse regional osteopenia, limiting assessment. There is apparent linear radiolucency traversing th e distal radial metaphyseal region obliquely seen to best advance on the lateral view. This is not de finitely appreciated on the frontal. IMPRESSION: Limited study. Findings suggest nondisplaced distal radial fracture. POS: [facility]
== END 2018-08-10 14:05 | disposition home or self-care (01) ==
LOC: NAV RAD 14:04
PROVIDERS: ATTEND Internal Medicine
DX: M79.641 Pain in right hand (principal)

== ENCOUNTER 2018-08-28 13:35 | Outpatient (CLI) | payer MEDICARE, BC ==
--- NOTE | 2018-08-28 14:53 | RAD ---
TWO VIEWS RIGHT WRIST: DATE: 08/28/2018. HISTORY: Closed nondisplaced fracture right wrist, followup evaluation. COMPARISON: 08/10/2018. FINDINGS: Again noted is diffuse regional osteopenia. The wrist is suboptimally positioned related to patient' s condition which was also present on prior exam. The previously seen or suggested nondisplaced frac ture involving the distal right radius is not definitely visualized on this examination and no defini tive sclerosis is seen in this region. No obvious fracture is seen. There is certainly no displaced fracture visualized. NO other interval change. IMPRESSION: Limited examination due to osteopenia and positioning of the wrist and hand which limits evaluation f or a fracture of the osseous structures. The suggested nondisplaced distal radial fracture on the pr ior study is not definitely visualized on this exam. No definite acute findings are seen on this kelsi dy. POS: AYDIN
== END 2018-08-28 13:36 | disposition home or self-care (01) ==
LOC: NAV RAD 13:35
PROVIDERS: ATTEND Internal Medicine
DX: S62.0 Fracture of navicular [scaphoid] bone of wrist (principal); M85.821 Other specified disorders of bone density and structure, right upper arm

== ENCOUNTER 2023-09-17 16:53 | Emergency (ER) | payer MEDICARE, BC | END 2023-09-17 18:25 | disposition home or self-care (01) | LOC: NAV ERS 16:53 | DX: Z04.3 Encounter for examination and observation following other accident (principal); I69.351 Hemiplegia and hemiparesis following cerebral infarction affecting right dominant side; I69.320 Aphasia following cerebral infarction; I10 Essential (primary) hypertension; W08.XXXA Fall from other furniture, initial encounter | CPT/HCPCS: 99284 ==